=== PATIENT | female | born 1965 | race Caucasian/White ===

== ENCOUNTER 2018-12-01 23:01 | Observation (INO) | payer BC ==
--- OUTSIDE RECORDS SUMMARY | 2018-12-01 23:03 | XMS REPORT | Summary of Care ---
:1965 Author Organization [facility] Address [address] [place], [place] [id number] Encounter HQ Encntr_alias(FIN) [id number] Date(s): 01/15/17 - 01/15/[address] Discharge Disposition: Home or Self Care Attending Physician: Pete Byers MD Referring Physician: Pete Byers MD Vital Signs No data available for this section Problem List No data available for this section Allergies, Adverse Reactions, Alerts No data available for this section Medications No data available for this section Results No data available for this section Immunizations No data available for this section Procedures No data available for this section Social History No data available for this section Assessment and Plan No data available for this section
--- OUTSIDE RECORDS SUMMARY | 2018-12-01 23:03 | XMS REPORT | Continuity of Care Document ---
:1965 Author Organization Interface Problems Problem Status Onset Date Classification Date Comments Source Reported PAIN Active 01/11/2017 [facility] Medications Medication Details Route Status Patient Ordering Order Source Instructions Provider Date Allergies, Adverse Reactions, Alerts Substance Category Reaction Severity Reaction Status Date Comments Source type Reported Immunizations Immunization Date Given Site Status Last Updated Comments Source Results Order Results Value Reference Date Interpretation Comments Source Name Range Chest 2 Chest 2 CHEST TWO VIEW 01/15 - [facility] views views - DX INDICATION: Clearance for the patient to begin Humira medication for psoriasis. Read by: Justin Moore MD Dictated Date/time: 01/15/17 11:54 Electronically Signed by: Justin Moore MD 01/15/17 11:56 FINAL REPORT COMPARISON: None. FINDINGS: The lungs are clear. The pleura, cardiomediastinal silhouette and bony thorax are normal. IMPRESSION: Negative. END IMPRESSION SL: [id number] Vital Signs Vital Sign Value Date Comments Source Encounters Location Location Encounter Encounter Reason Attending ADM DC Status Source Details Type Number For Provider Date Date Visit [facility] Outpatient [id number] Pete Byers 01/15 01/16 [facility] /2016 [facility] Procedures Procedure Code Date Perfomer Comments Source
[2018-12-01] MEDS ORDERED: ONDANSETRON 4 MG/2 ML VIAL ONE (23:40)
[2018-12-02 00:06] LABS: Absolute Lymphocytes (CBC) 2.2 K/uL (0.7-4.9); Absolute Monocytes 0.5 K/uL (0.1-1.3); Absolute Neutrophil 5.9 K/uL (1.8-8.0); Basophils % 0.8 % (0-1.3); Eosinophils % 6.1 % (0-4.4); Hematocrit 40.5 % (36.0-45.0); Lymphocytes % 23.9 % (15.3-44.8); MPV 9.1 fL (7.6-11.3); Monocytes % 5.9 % (3.3-12.3); RBC Red Blood Cell Count 4.48 M/uL (3.86-4.86)
[2018-12-02 00:12] LABS: ALT/SGPT 34 U/L (12-78); AST/SGOT 24 U/L (15-37); Albumin 3.9 g/dL (3.4-5.0); Alkaline Phosphatase 66 U/L (45-117); BUN Blood Urea Nitrogen 14 mg/dL (7-18); Bicarbonate 29 mmol/L (21-32); Bilirubin Direct 0.1 mg/dL (0-0.2); Bilirubin Total 0.4 mg/dL (0.2-1.0); Glucose Level 111 mg/dL (74-106); Lipase 116 U/L (73-393); Potassium 3.4 mmol/L (3.5-5.1); Protein, Total 7.4 g/dL (6.4-8.2); Sodium Level 140 mmol/L (136-145)
[2018-12-02] MEDS ORDERED: FENTANYL CITR 100 MCG/2 ML ONE (00:50)
[2018-12-02] MEDS ORDERED: FAMOTIDINE 20 MG/2 ML VIAL IV ONE (00:51)
[2018-12-02] MEDS ORDERED: PIPER/TAZO/NS 3.375gm 3.375 GM/100 ML BAG ONE (00:51)
[2018-12-02] MEDS ORDERED: NA CHLORIDE 0.9% 1,000 ML ONE (00:51)
[2018-12-02 01:00] LABS: Protime INR 0.99
[2018-12-02 01:21] LABS: Troponin (Emerg Dept Use Only) < 0.02 ng/mL (0.0-0.045)
--- NOTE | 2018-12-02 01:59 | ER ---
Nurse's Notes [facility] Name: Nathalie Buckley Age: 53 yrs Sex: Female : 1965 Arrival Date: 12/01/2018 Time: 23:05 Bed 25 Private MD: Bridger Michaels B Diagnosis: Abdominal tenderness;Vomiting;Hypokalemia;Essential (primary) hypertension Presentation: 12/01 23:15 Presenting complaint: Patient states: she has abdominal pain/cramping radiating to the mg2 back started this 2130H. she ate chicken blue in [facility]. she vomited once on her way her to ed. Transition of care: patient was not received from another setting of care. Onset of symptoms was December 01, 2018 at 21:30. Risk Assessment: Do you want to hurt yourself or someone else? Patient reports no desire to harm self or others. Initial Sepsis Screen: Does the patient meet any 2 criteria? No. Patient's initial sepsis screen is negative. Does the patient have a suspected source of infection? No. Patient's initial sepsis screen is negative. Care prior to arrival: None. 23:15 Method Of Arrival: Ambulatory mg2 23:15 Acuity: LIYA 3 mg2 Triage Assessment: 23:22 General: Appears in no apparent distress. comfortable, Behavior is calm, cooperative. mg2 Pain: Complains of pain in abdomen Pain radiates to back Pain currently is 9 out of 10 on a pain scale. Quality of pain is described as aching, crampy, Pain began gradually, 2 hours ago. Is intermittent. EENT: No deficits noted. Neuro: Level of Consciousness is awake, alert, obeys commands, Oriented to person, place, time, situation. Cardiovascular: Capillary refill < 3 seconds Patient's skin is warm and dry. Respiratory: Airway is patent Respiratory effort is even, unlabored, Respiratory pattern is regular, symmetrical. GI: Abdomen is flat, non-distended, Reports lower abdominal pain, upper abdominal pain, vomiting. : No signs and/or symptoms were reported regarding the genitourinary system. Derm: Skin is intact, is healthy with good turgor, Skin is pink, warm \T\ dry. normal. Musculoskeletal: No signs and/or symptoms reported regarding the musculoskeletal system. 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 - Social history:: Smoking status: Patient/guardian denies using tobacco, Patient uses alcohol, 2-3 bottles 5 times a week. Patient/guardian denies using street drugs, IV drugs. - Ebola Screening: : No symptoms or risks identified at this time. Screenin:21 Abuse screen: Denies threats or abuse. Denies injuries from another. Nutritional mg2 screening: No deficits noted. Tuberculosis screening: No symptoms or risk factors identified. Fall Risk IV access (20 points). Assessment: 23:23 Reassessment: see triage assessment. mg2 12/02 01:47 Reassessment: patient sleeping on bed. mg2 02:17 Reassessment: dr carrero came and assessed the patient. advised for hospitalization. mg2 patient agreed. 02:18 GI: Bowel sounds present X 4 quads. Abd is soft X 4 quads. mg2 02:53 Reassessment: patient sent to ct scan. mg2 Vital Signs: 12/01 23:19 BP 115 / 55; Pulse 82; Resp 18; Temp 98.2; Pulse Ox 100% on R/A; Weight 63.5 kg; Height mg2 5 ft. 6 in. (167.64 cm); Pain 9/10; 12/02 00:09 BP 155 / 105; Pulse 72; Resp 19; Pulse Ox 100% on R/A; ca1 02:52 BP 142 / 78; Pulse 78; Resp 18; Pulse Ox 100% on R/A; Pain 0/10; mg2 12/01 23:19 Body Mass Index 22.60 (63.50 kg, 167.64 cm) mg2 ED Course: 12/01 23:05 Patient arrived in ED. am2 23:05 Bridger Michaels MD is Private Physician. am2 23:19 Triage completed. mg2 23:20 Inserted saline lock: 20 gauge in left antecubital area, using aseptic technique. Blood ca1 collected. 23:21 Arm band placed on. mg2 23:23 No provider procedures requiring assistance completed. mg2 03/04 00:02 Surendra Valreio MD is Attending Physician. sukh 00:03 Fantasma Costello RN is Primary Nurse. mg2 00:48 X-ray completed. Portable x-ray completed in exam room. Patient tolerated procedure kw well. 00:49 Chest Single View XRAY In Process Unspecified. EDMS 01:57 Kai Howard MD is Hospitalizing Provider. sukh 02:18 Patient has correct armband on for positive identification. mg2 02:37 Patient admitted, IV remains in place. mg2 02:[address] via wheelchair. kw1 03:04 CT completed. Patient tolerated procedure well. Patient moved back from CT. kw1 Administered Medications: 03 23:32 CANCELLED (Duplicate Order): Zofran 2 mg IVP once; over 2 minutes ca1 23:33 Drug: Zofran 4 mg Route: IVP; Site: left antecubital; ca1 03/04 00:46 Follow up: Response: No adverse reaction; Nausea is decreased mg2 00:45 Drug: fentaNYL (PF) 25 mcg Route: IVP; Site: left antecubital; mg2 01:40 Follow up: Response: No adverse reaction; Marked relief of symptoms mg2 00:45 Drug: fentaNYL (PF) 25 mcg Route: IVP; Site: left antecubital; mg2 01:40 Follow up: Response: No adverse reaction; Marked relief of symptoms mg2 00:45 Drug: Zosyn 3.375 grams Route: IVPB; Infused Over: 60 mins; Site: left antecubital; mg2 01:40 Follow up: Response: No adverse reaction; IV Status: Completed infusion mg2 00:46 Drug: NS 0.9% 1000 ml Route: IV; Rate: 1 bolus; Site: left antecubital; mg2 01:41 Follow up: Response: No adverse reaction; IV Status: Completed infusion mg2 00:46 Drug: Pepcid 20 mg Route: IVP; Site: left antecubital; mg2 01:40 Follow up: Response: No adverse reaction; Marked relief of symptoms mg2 02:17 Drug: NS 0.9% with KCl 20 mEq/L 1000 ml Route: IV; Rate: 125 ml/hr; Site: left mg2 antecubital; 02:58 Follow up: Response: No adverse reaction; IV Status: Infusion continued upon admission mg2 Outcome: 01:58 Decision to Hospitalize by Provider. sukh 02:37 Admitted to [facility] by nurse, via wheelchair, room 427, with chart, Report mg2 called to LINDSAY Atkinson 02:37 Condition: stable 02:37 Instructed on the need for admit, Demonstrated understanding of instructions. 03:04 Patient left the ED. tl1 Signatures: Dispatcher [employer] EDSurendra Ornelas MD MD cha Whitley, Kimberlee kw Lasagna, Tonya RN RN tl1 Flavia Dailey Kimberly kw1 Fantasma Costello RN RN mg2 Hilda Cruz, RN RN ca1 Corrections: (The following items were deleted from the chart) 03 23:23 23:22 General: Appears mg2 mg2
--- NOTE | 2018-12-02 02:00 | EDPHYS ---
Physician Documentation [facility] Name: Nathalie Buckley Age: 53 yrs Sex: Female : 1965 Arrival Date: 12/01/2018 Time: 23:05 Bed 25 Private MD: Bridger Michaels B ED Physician Surendra Valerio HPI: 12/02 00:31 This 53 yrs old Female presents to ER via Ambulatory with complaints of sukh Abdominal Distention, Abdominal Pain, Abdominal Cramping, Back Pain. 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 - Social history:: Smoking status: Patient/guardian denies using tobacco, Patient uses alcohol, 2-3 bottles 5 times a week. Patient/guardian denies using street drugs, IV drugs. - Ebola Screening: : No symptoms or risks identified at this time. ROS: 12/02 00:31 Constitutional: Negative for fever, chills, and weight loss, Eyes: Negative for injury, sukh pain, redness, and discharge, ENT: Negative for injury, pain, and discharge, Neck: Negative for injury, pain, and swelling, Cardiovascular: Negative for chest pain, palpitations, and edema, Respiratory: Negative for shortness of breath, cough, wheezing, and pleuritic chest pain, Back: Negative for injury and pain, : Negative for injury, bleeding, discharge, and swelling, MS/Extremity: Negative for injury and deformity, Skin: Negative for injury, rash, and discoloration, Neuro: Negative for headache, weakness, numbness, tingling, and seizure, Psych: Negative for depression, anxiety, suicide ideation, homicidal ideation, and hallucinations, Allergy/Immunology: Negative for hives, rash, and allergies, Endocrine: Negative for neck swelling, polydipsia, polyuria, polyphagia, and marked weight changes, Hematologic/Lymphatic: Negative for swollen nodes, abnormal bleeding, and unusual bruising. Abdomen/GI: Positive for abdominal pain, abdominal distension, of the epigastric area and right upper quadrant. Exam: 00:31 Constitutional: This is a well developed, well nourished patient who is awake, alert, sukh and in no acute distress. Head/Face: Normocephalic, atraumatic. Eyes: Pupils equal round and reactive to light, extra-ocular motions intact. Lids and lashes normal. Conjunctiva and sclera are non-icteric and not injected. Cornea within normal limits. Periorbital areas with no swelling, redness, or edema. ENT: Nares patent. No nasal discharge, no septal abnormalities noted. Tympanic membranes are normal and external auditory canals are clear. Oropharynx with no redness, swelling, or masses, exudates, or evidence of obstruction, uvula midline. Mucous membranes moist. Neck: Trachea midline, no thyromegaly or masses palpated, and no cervical lymphadenopathy. Supple, full range of motion without nuchal rigidity, or vertebral point tenderness. No Meningismus. Chest/axilla: Normal chest wall appearance and motion. Nontender with no deformity. No lesions are appreciated. Cardiovascular: Regular rate and rhythm with a normal S1 and S2. No gallops, murmurs, or rubs. Normal PMI, no JVD. No pulse deficits. Respiratory: Lungs have equal breath sounds bilaterally, clear to auscultation and percussion. No rales, rhonchi or wheezes noted. No increased work of breathing, no retractions or nasal flaring. Back: No spinal tenderness. No costovertebral tenderness. Full range of motion. Skin: Warm, dry with normal turgor. Normal color with no rashes, no lesions, and no evidence of cellulitis. MS/ Extremity: Pulses equal, no cyanosis. Neurovascular intact. Full, normal range of motion. Neuro: Awake and alert, GCS 15, oriented to person, place, time, and situation. Cranial nerves II-XII grossly intact. Motor strength 5/5 in all extremities. Sensory grossly intact. Cerebellar exam normal. Normal gait. Psych: Awake, alert, with orientation to person, place and time. Behavior, mood, and affect are within normal limits. 00:31 Abdomen/GI: Inspection: abdomen appears normal, Bowel sounds: normal, in the epigastric area and right upper quadrant, Palpation: mild abdominal tenderness, moderate abdominal tenderness, in the epigastric area and right upper quadrant, Liver: no appreciated palpable abnormalities, Hernia: not appreciated. Vital Signs: 12/01 23:19 BP 115 / 55; Pulse 82; Resp 18; Temp 98.2; Pulse Ox 100% on R/A; Weight 63.5 kg; Height mg2 5 ft. 6 in. (167.64 cm); Pain 9/10; 12/02 00:09 BP 155 / 105; Pulse 72; Resp 19; Pulse Ox 100% on R/A; ca1 02:52 BP 142 / 78; Pulse 78; Resp 18; Pulse Ox 100% on R/A; Pain 0/10; mg2 12/01 23:19 Body Mass Index 22.60 (63.50 kg, 167.64 cm) mg2 MDM: 00:02 Patient medically screened. [facility] 00:33 Data reviewed: vital signs, nurses notes, lab test result(s), EKG, radiologic studies, [facility] CT scan, plain films. 12/01 23:15 Order name: Basic Metabolic Panel; Complete Time: 01:52 [facility] 12/01 23:15 Order name: CBC with Diff; Complete Time: 00:28 [facility] 12/01 23:15 Order name: Creatinine for Radiology; Complete Time: 00:28 [facility] 12/01 23:15 Order name: Hepatic Function; Complete Time: 01:52 [facility] 12/01 23:15 Order name: Lipase; Complete Time: 01:52 [facility] 12/02 00:31 Order name: PT-INR; Complete Time: 01:52 sukh 12/02 00:31 Order name: Ptt, Activated; Complete Time: 01:[address] [facility] 12/02 00:44 Order name: Troponin (Emerg Dept Use Only); Complete Time: 01:52 [facility] 12/02 02:26 Order name: Urinalysis [facility] 12/02 02:26 Order name: CBC with Automated Diff [facility] 12/02 02:26 Order name: CBC with Automated Diff [facility] 12/02 02:26 Order name: Comprehensive Metabolic Panel ED[facility] 12/02 02:26 Order name: Comprehensive Metabolic Panel [facility] 12/02 00:31 Order name: Chest Single View XRAY [facility] 12/02 00:31 Order name: CT Abd/Pelvis - W/Contrast [facility] 12/02 02:02 Order name: US Abdomen Limited [facility] 12/02 02:26 Order name: NPO EDLA 03/04 02:26 Order name: Magnesium [facility] 12/02 02:26 Order name: Magnesium EDMS 12/02 02:26 Order name: Phosphorus EDMS 12/02 02:26 Order name: Phosphorus EDMS 12/01 23:15 Order name: IV Saline Lock; Complete Time: 23:27 mg2 12/01 23:15 Order name: Labs collected and sent; Complete Time: 23:27 mg2 Administered Medications: 12/01 23:32 CANCELLED (Duplicate Order): Zofran 2 mg IVP once; over 2 minutes ca1 23:33 Drug: Zofran 4 mg Route: IVP; Site: left antecubital; ca1 12/02 00:46 Follow up: Response: No adverse reaction; Nausea is decreased mg2 00:45 Drug: fentaNYL (PF) 25 mcg Route: IVP; Site: left antecubital; mg2 01:40 Follow up: Response: No adverse reaction; Marked relief of symptoms mg2 00:45 Drug: fentaNYL (PF) 25 mcg Route: IVP; Site: left antecubital; mg2 01:40 Follow up: Response: No adverse reaction; Marked relief of symptoms mg2 00:45 Drug: Zosyn 3.375 grams Route: IVPB; Infused Over: 60 mins; Site: left antecubital; mg2 01:40 Follow up: Response: No adverse reaction; IV Status: Completed infusion mg2 00:46 Drug: NS 0.9% 1000 ml Route: IV; Rate: 1 bolus; Site: left antecubital; mg2 01:41 Follow up: Response: No adverse reaction; IV Status: Completed infusion mg2 00:46 Drug: Pepcid 20 mg Route: IVP; Site: left antecubital; mg2 01:40 Follow up: Response: No adverse reaction; Marked relief of symptoms mg2 02:17 Drug: NS 0.9% with KCl 20 mEq/L 1000 ml Route: IV; Rate: 125 ml/hr; Site: left mg2 antecubital; 02:58 Follow up: Response: No adverse reaction; IV Status: Infusion continued upon admission mg2 Disposition: 12/02/18 01:58 Hospitalization ordered by Kai Howard for Observation. Preliminary diagnosis are Abdominal tenderness, Vomiting, Hypokalemia, Essential (primary) hypertension. - Bed requested for Telemetry/MedSurg (observation). - Status is Observation. tl1 - Condition is Stable. - Problem is new. - Symptoms have improved. UTI on Admission? No Signatures: Dispatcher [employer] EDLA Surendra Valerio MD MD cha Lasagna, Tonya, RN RN tl1 Racheal Bello wa Fantasma Costello RN RN mg2 Hilda Cruz RN RN ca1 Corrections: (The following items were deleted from the chart) 12/01 23:32 23:27 Zofran 2 mg IVP once; over 2 minutes ordered. ca1 ca1 12/02 00:43 00:31 TROPONIN (EMERG DEPT USE ONLY)+C.LAB.BRZ ordered. [facility] EDLA 02:18 01:58 Hospitalization Ordered by Kai Howard MD for Observation. Preliminary mt diagnosis is Abdominal tenderness; Vomiting; Hypokalemia; Essential (primary) hypertension. Bed requested for Telemetry/MedSurg (observation). Status is Observation. Condition is Stable. Problem is new. Symptoms have improved. UTI on Admission? No. [facility] 03:04 02:18 12/02/2018 01:58 Hospitalization Ordered by Kai Howard MD for Observation. tl1 Preliminary diagnosis is Abdominal tenderness; Vomiting; Hypokalemia; Essential (primary) hypertension. Bed requested for Telemetry/MedSurg (observation). Status is Observation. Condition is Stable. Problem is new. Symptoms have improved. UTI on Admission? No. mt
[2018-12-02] MEDS ORDERED: NS KCL 20MEQ 1,000 ML IV ONE (02:16)
[2018-12-02] MEDS ORDERED: ONDANSETRON 4 MG/2 ML VIAL IV PRN (02:21)
[2018-12-02] MEDS ORDERED: ACETAMINOPHEN 500 MG TAB PO PRN (02:21)
[2018-12-02] MEDS ORDERED: ALPRAZOLAM 0.25 MG TABLET PO PRN (02:21)
[2018-12-02] MEDS ORDERED: MAGNESIUM HYDROXIDE 8% 30 ML PO PRN (02:21)
[2018-12-02 03:28] VITALS: O2SAT 100
[2018-12-02] MEDS: NA CHLORIDE 0.9% 1,000 ML IV SCH ×2 (03:43→13:00)
[2018-12-02 04:16] VITALS: BMI 22.6
--- NOTE | 2018-12-02 07:55 | RAD REPORT ---
EXAM DESCRIPTION: Sarah Single View12/02/2018 12:51 am CLINICAL HISTORY: abdominal pain COMPARISON: none FINDINGS: The lungs appear clear of acute infiltrate. The heart is normal size IMPRESSION: No acute abnormalities displayed
[2018-12-02] MEDS: KCL 20 MEQ/100 mL IVPB 20 MEQ/100 ML BAG IV SCH ×2 (08:00→10:00)
--- NOTE | 2018-12-02 08:09 | RAD REPORT ---
EXAM DESCRIPTION: US - Abdomen Exam Limited - 12/02/2018 7:57 am CLINICAL HISTORY: Abdominal pain. COMPARISON: December 02 CAT scan FINDINGS: A large gallstone. Smaller gallstones are present. The gallbladder wall measures 4 millime ters. Small amount pericholecystic fluid The biliary tree is normal caliber. IMPRESSION: Cholelithiasis with thickened wall and small amount of pericholecystic fluid consistent with cholecystitis.
[2018-12-02] MEDS ORDERED: ENOXAPARIN 40 MG/0.4 ML SQ SCH (09:00)
[2018-12-02] MEDS ORDERED: ALBUTEROL 2.5 MG/3 ML NEB SOL NEB PRN (09:30)
[2018-12-02] MEDS ORDERED: METRONIDAZOLE 500mg IVPB 500 MG/100 ML BAG IV SCH (10:00)
--- NOTE | 2018-12-02 10:49 | P.HP ---
Certification for Inpatient Patient admitted to: Inpatient With expected LOS: >2 Midnights Patient will require the following post-hospital care: None Practitioner: I am a practitioner with admitting privileges, knowledge of patient current condition, hospital course, and medical plan of care. Services: Services provided to patient in accordance with Admission requirements found in Title 42 Section 412.3 of the Code of Federal Regulations Patient History Date of Service: 12/02/18 Reason for admission: Abdominal pain/acute cholecystitis History of Present Illness: Patient is a 53-year-old female came to the hospital with abdominal discomfort. Pain was mainly in the right upper quadrant. Patient had an episode of nausea and vomiting. Patient workup in the ER revealed acute cholecystitis with cholelithiasis. Patient will be admitted to the hospital with General surgery consultation. Will also get an abdominal ultrasound start on IV antibiotics. Pain control as well. Allergies No Known Allergies Allergy (Verified 12/02/18 04:34) Home Medications: Albuterol Sulfate [Proair Hfa] 8.5 gm IH BIDP PRN 12/02/18 Guselkumab [Tremfya] 100 mg SQ SEECOM 12/02/18 Losartan Potassium [Cozaar] 50 mg PO DAILY 12/02/18 - Past Medical/Surgical History Has patient received pneumonia vaccine in the past: No Diabetic: No -: hypertension -: asthma -: c section - Family History Father Medical History: Hypertension Mother Medical History: Hypertension - Social History Smoking Status: Never smoker Alcohol use: Yes Caffeine use: Yes Place of Residence: Home Review of Systems 10-point ROS is otherwise unremarkable Physical Examination - Vital Signs Temperature: 97.6 F Blood Pressure: 128/88 Pulse: 74 Respirations: 16 Pulse Ox (%): 98 - Physical Exam General: Alert, In no apparent distress, Oriented x3 HEENT: Atraumatic, PERRLA, Mucous membr. moist/pink, EOMI, Sclerae nonicteric Neck: Supple, 2+ carotid pulse no bruit, No LAD, Without JVD or thyroid abnormality Respiratory: Clear to auscultation bilaterally, Normal air movement Cardiovascular: Regular rate/rhythm, Normal S1 S2, No murmurs Gastrointestinal: Normal bowel sounds, Soft and benign, Non-distended, Tenderness, Rebound Musculoskeletal: No clubbing, No swelling, No tenderness Integumentary: No rashes Neurological: Normal gait, Normal speech, Normal strength at 5/5 x4 extr, Normal tone, Sensation intact, Cranial nerves 3-12 intact, Normal affect Lymphatics: No axilla or inguinal lymphadenopathy - Studies Laboratory Data (last 24 hrs) 12/02/18 00:00: PT 11.7, INR 0.99, APTT 31.1 12/01/18 23:20: Creatinine 0.84 12/01/18 23:20: WBC 9.3, Hgb 13.6, Hct 40.5, Plt Count 280 12/01/18 23:20: Sodium 140, Potassium 3.4 L, BUN 14, Creatinine 0.85, Glucose 111 H, Total Bilirubin 0.4, AST 24, ALT 34, Alkaline Phosphatase 66, Lipase 116 Assessment & Plan - Problems (Diagnosis) (1) Acute cholecystitis due to biliary calculus Current Visit: Yes Status: Acute - Plan 1. Continue with IV hydration 2. Continue with IV antibiotics 3. Continue with pain control 4. NPO 5. General surgery consultation; abdominal ultrasound pending 6. Serial H&H, and we will monitor CBC, BMP, LFTs and lipase along with electrolytes. 7. GI and DVT prophylaxis Discharge Plan: Home Plan to discharge in: Greater than 2 days - Advance Directives Does patient have a Living Will: No Does patient have a Durable POA for Healthcare: No - Code Status/Comfort Care Code Status Assessed: Yes Code Status: Full Code Critical Care: No Time Spent Managing PTS Care (In Minutes): 50
[2018-12-02] MEDS ORDERED: CIPROFLOXACIN 400mg IV 400 MG/200 ML BAG IV SCH (11:00)
--- NOTE | 2018-12-02 11:05 | P.DS ---
Admission Date: 12/02/18 Discharge Date: 12/02/18 Primary Care Provider: Dr. Michaels Disposition: ROUTINE DISCHARGE Discharge Condition: GOOD Reason for Admission: Abdominal pain/acute cholecystitis Consultations: Surgery-Dr. Tejeda Procedures: ABUS: COMPARISON: December 02 CAT scan FINDINGS: A large gallstone. Smaller gallstones are present. The gallbladder wall measures 4 millimeters. Small amount pericholecystic fluid The biliary tree is normal caliber. IMPRESSION: Cholelithiasis with thickened wall and small amount of pericholecystic fluid consistent with cholecystitis. Medical Problem List: Right upper quadrant abdominal pain, nausea and vomiting secondary to acute cholecystitis and cholelithiasis Hypertension Asthma Psoriasis Brief History of Present Illness: 53-year-old female presented emergency room with right upper quadrant abdominal pain, nausea and vomiting. Patient evaluated in the emergency room. Patient found to have cholecystitis with cholelithiasis. Patient was admitted for further evaluation. Hospital Course: Patient presented with right upper quadrant abdominal pain, nausea and vomiting secondary to acute cholecystitis and cholelithiasis. Pro calcitonin negative. White count within normal range. Patient was admitted for treatment. Patient seen and evaluated by surgery. No surgical intervention was required. Patient did well in her stay. At discharge she will continue with Flagyl 500 mg 1 pill 3 times a day and Cipro 500 mg 1 pill twice daily for 7 days. Recommend to follow up with surgery within 1 week. Arrangements for outpatient cholecystectomy will be arranged as the patient will follow up with surgery. Patient with hypertension. Patient will continue with losartan 50 mg 1 pill daily. Recommend to maintain blood pressures less 150/80. Further adjustment can be done by her PCP. Patient with asthma. Patient will continue with her inhalers. Further adjustment can be done by her PCP. Patient with psoriasis. Patient will continue with her medication. Vital Signs/Physical Exam: Temp Pulse Resp BP Pulse Ox 97.6 F 74 16 128/88 98 12/02/18 10:49 12/02/18 10:49 12/02/18 10:49 12/02/18 10:49 12/02/18 10:49 General: Alert, In no apparent distress, Oriented x3, Cooperative HEENT: Atraumatic Neck: Supple Respiratory: Clear to auscultation bilaterally, Normal air movement Cardiovascular: Normal pulses, Regular rate/rhythm Gastrointestinal: Normal bowel sounds, Soft and benign, Non-distended, No ascites, No tenderness, No masses, No rebound, No guarding Musculoskeletal: No erythema, No tenderness, No warmth Integumentary: No tenderness/swelling, No erythema, No warmth, No cyanosis Neurological: Normal speech, Normal strength at 5/5 x4 extr, Normal tone, Normal affect Laboratory Data at Discharge: WBC 9.3 K/uL (4.3-10.9) 12/01/18 23:20 Hgb 13.6 g/dL (12.0-15.0) 12/01/18 23:20 Hct 40.5 % (36.0-45.0) 12/01/18 23:20 Plt Count 280 K/uL (152-406) 12/01/18 23:20 PT 11.7 SECONDS (9.5-12.5) 12/02/18 00:00 INR 0.99 12/02/18 00:00 APTT 31.1 SECONDS (24.3-36.9) 12/02/18 00:00 Sodium 140 mmol/L (136-145) 12/01/18 23:20 Potassium 3.9 mmol/L (3.5-5.1) 12/02/18 08:08 BUN 14 mg/dL (7-18) 12/01/18 23:20 Creatinine 0.85 mg/dL (0.55-1.3) 12/01/18 23:20 Glucose 111 mg/dL (74-106) H 12/01/18 23:20 Total Bilirubin 0.4 mg/dL (0.2-1.0) 12/01/18 23:20 AST 24 U/L (15-37) 12/01/18 23:20 ALT 34 U/L (12-78) 12/01/18 23:20 Alkaline Phosphatase 66 U/L (45-117) 12/01/18 23:20 Lipase 116 U/L (73-393) 12/01/18 23:20 Home Medications: Albuterol Sulfate [Proair Hfa] 8.5 gm IH BIDP PRN 12/02/18 Ciprofloxacin HCl [Cipro 500 MG Tablet] 500 mg PO BID #14 tab 12/02/18 Guselkumab [Tremfya] 100 mg SQ SEECOM 12/02/18 Losartan Potassium [Cozaar*] 50 mg PO DAILY 12/02/18 metroNIDAZOLE [Flagyl] 500 mg PO Q8H #21 tablet 12/02/18 New Medications: Ciprofloxacin HCl [Cipro 500 MG Tablet] 500 mg PO BID #14 tab metroNIDAZOLE [Flagyl] 500 mg PO Q8H #21 tablet Patient Discharge Instructions: 1. Patient will follow up with surgery within 1 week. 2. Patient presented with right upper quadrant abdominal pain, nausea and vomiting secondary to acute cholecystitis and cholelithiasis. Pro calcitonin negative. White count within normal range. Patient was admitted for treatment. Patient seen and evaluated by surgery. No surgical intervention was required. Patient did well in her stay. At discharge she will continue with Flagyl 500 mg 1 pill 3 times a day and Cipro 500 mg 1 pill twice daily for 7 days. Recommend to follow up with surgery within 1 week. Arrangements for outpatient cholecystectomy will be arranged as the patient will follow up with surgery. 3. Patient with hypertension. Patient will continue with losartan 50 mg 1 pill daily. Recommend to maintain blood pressures less 150/80. Further adjustment can be done by her PCP. 4. Patient with asthma. Patient will continue with her inhalers. Further adjustment can be done by her PCP. 5. Patient with psoriasis. Patient will continue with her medication. Diet: GI soft diet Activity: Ad jadon Time spent managing pt's care (in minutes): 55
--- NOTE | 2018-12-02 13:05 | RAD REPORT ---
EXAM DESCRIPTION: CT - Abdomen Pelvis W Contrast - 12/02/2018 4:34 am COMPARISON: None CLINICAL HISTORY: Abdominal pain TECHNIQUE: Multiple helical axial images were obtained through the abdomen and pelvis using intraven ous contrast. Coronal and sagittal reformatted images were obtained. All CT scans at this facility use dose modulation, iterative reconstruction, and/or weight-based dosi ng when appropriate to reduce radiation dose to as low as reasonably achievable. FINDINGS: Lung bases: A small hiatal hernia is present. Small calcified granuloma in the left lower lobe is present. Liver: Homogenous attenuation is noted. Gallbladder/biliary: Gallstones within the gallbladder are present. Gallbladder wall appears mildly t hickened. No evidence of biliary ductal dilatation. Pancreas: Unremarkable. No evidence of ductal enlargement. Spleen: Appears unremarkable. No splenomegaly. Adrenals: Unremarkable. Kidneys and ureters: No evidence of hydronephrosis. Normal enhancement. Bladder: Unremarkable. Pelvic organs: A 3 cm mildly heterogeneous lesion involving the uterine fundus is present suggestive of a fibroid. Small nabothian cysts are present. Bowel: Colonic diverticula are present. No evidence of bowel obstruction. No bowel wall thickening. Appendix appears unremarkable. Vasculature: Minimal aortic atherosclerosis is present. Peritoneum: No free air. No significant free fluid. Lymph nodes: Unremarkable. Soft tissues: Unremarkable. Bones: Degenerative changes of the lumbar spine noted. IMPRESSION: 1. Cholelithiasis with mildly thickened appearance of the gallbladder wall, correlate cl inically for acute cholecystitis. Ultrasound can be obtained for follow-up as appropriate. 2. Small uterine fibroid. 3. Colonic diverticulosis. 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 The interpreting radiologist is f ully responsible for the content of the report.
[2018-12-02 13:42] LABS: Urine Appearance CLEAR; Urine Bilirubin NEGATIVE (NEG); Urine Blood NEGATIVE (NEG); Urine Color YELLOW; Urine Glucose NEGATIVE (NEG); Urine Protein NEGATIVE (NEG); Urine Specific Gravity 1.015 (1.005-1.030)
[2018-12-02 13:43] LABS: Urine Microscopic Reflex NO UMIC
--- NOTE | 2018-12-02 14:29 | CON ---
Date of Consultation: 12/02/2018 Brief History Of Present Illness: The patient is a 53-year-old female, who came to the [facility] with abdominal discomfort beginning yesterday, it was mainly in the epigastric area in a band-l cedric distribution, but localized to the right upper quadrant and epigastric region. She had an episod e of nausea and vomiting. She had somewhat similar episodes before in the past. She had an EGD and was told she had a hiatal hernia and gastritis before in the past, was placed on high dose acid suppr ession with 40 mg p.o. b.i.d. by her description by Dr. Voss. She did get symptomatic improvement with that, but these episodes felt somewhat similar, although they localized to the right upper quadr ant, which was a somewhat atypical presentation for her and as such, she came to the emergency room. Past Medical History: Significant for hypertension, asthma, . Past Surgical History: She has had D and C, , abdominoplasty. Allergies: ONLY SEASONAL ALLERGIES. NO KNOWN DRUG ALLERGIES. Medications: At home include, ProAir, Tremfya, and Cozaar. Family History: Father had hypertension and mother had hypertension. Social History: Smoking, she denies smoking. She drinks 2 bottles of wine per week. Denies any rec reational drug use. Review of Systems: A 10-point review of systems other than HPI, denies. Physical Examination: Vital Signs: At the time of my examination, her BMI is 22.6. Her blood pressure 128/88, pulse 74, r espiratory rate 16, temperature 97.6. General: She is awake, alert, and oriented. Psychiatric: She is appropriate and conversive. HEENT: She is normocephalic. Sclerae anicteric. Mucous is moist. Oropharynx is clear. Neck: Supple. No JVD. Chest: Normal expansion and excursion. Cardiovascular: Regular rate and rhythm. Pulmonary: Clear to auscultation bilaterally. Abdomen: Soft, nontender, nondistended. No rebound. No guarding. No focal peritonitis. Negative Randolph sign. She has well-healed surgical scars from her abdominoplasty. Extremities: No clubbing, cyanosis, or edema. Skin: Warm and dry. Laboratory Data: Reveals white blood cell count of 9.3, hemoglobin is 13.6, hematocrit of 40.5, plat elet count is 280. Her PT was 11.7, INR 0.9, PTT is 31.1. Sodium 140, potassium 3.9, chloride 104, carbon dioxide 29, BUN 14, creatinine 0.8, glucose is 111, calcium 8.6, total bilirubin 0.4, direct c omponent 0.1, AST 24, ALT 34, alkaline phosphatase is 66. Troponin was 0.02. Lipase was 116. Proca lcitonin less than 0.05. She had a CT scan performed of the abdomen and pelvis as well as an abdomin al ultrasound. The abdominal ultrasound was officially read as cholelithiasis with thickened wall an d small amount of pericholecystic fluid consistent with cholecystitis. The gallbladder wall measures 4 mm. Small amount of pericholecystic fluid and large gallstone. Biliary tree is normal in caliber . Her CT scan was officially read by the [facility] radiologist as colonic diverticula are present. Appendix appears unremarkable. A 3 cm heterogeneous lesion involving the uterine fundus suggestive o f fibroids. Small nabothian cysts are present. Gallbladder has gallstones within the gallbladder ar e present. Gallbladder feels mildly thickened. No evidence of biliary tree dilatation. Assessment And Plan: This is a 53-year-old female who comes in with signs and symptoms of acute calc ulous cholecystitis. 1.IV fluid hydration. 2.Antibiotic coverage. 3.I have explained risks, benefits, and alternatives of laparoscopic, possible open cholecystectomy including but not limited to bleeding, infection, damage to the surrounding tissues, injury to bile d ucts and intestines. The patient stated that she would like to schedule this as an outpatient as she is currently completely asymptomatic. She would like to leave as she states she has plans for sprin g break and would like to schedule her surgery as an outpatient following that. I have explained the dietary plan, risks, benefits, and alternatives of the above stated plan and she will be discharged if able to tolerate p.o. diet with instructions to follow up as soon as possible to schedule for elec tive cholecystectomy. I have instructed her to return to the ER with any resumption of symptoms and that the risks of the cholecystitis attack including the infectious nature which she has and the need to come to the ER immediately upon any return of symptoms or new symptoms. She displayed understand ing of above stated plan and agree to proceed as indicated. TK/SHAMAR Voice ID: [id number] Report ID: [id number]
[2018-12-02 16:31] VITALS: BP 135/89; TEMP 98.9
[2018-12-02] MEDS ORDERED: DULERA 100/5 (MOMETASONE/FORMOTEROL) INHALER IH SCH (21:00)
[2018-12-03] MEDS ORDERED: PANTOPRAZOLE 40MG TABLET PO SCH (06:30)
[2018-12-03] MEDS ORDERED: LOSARTAN POTASSIUM 50 MG TABLET PO SCH (09:00)
== END 2018-12-02 16:48 | disposition home or self-care (01) ==
LOC: ER 23:01 → ERHOLD 12-02 02:34 → 4TH 12-02 02:44
PROVIDERS: ADMIT Hospitalist; ATTEND Hospitalist
DX: K80.00 Calculus of gallbladder with acute cholecystitis without obstruction (principal); I10 Essential (primary) hypertension; J45.909 Unspecified asthma, uncomplicated; L40.9 Psoriasis, unspecified
CPT/HCPCS: 36415; 71045; 74177; 76705; 80048; 80076; 81003; 83690; 84132; 84145; 84484; 85025; 85610; 85730; 96361; 96365; 96375; 99285; G0378; J0744; J1650; J2405; J2543; J3010; J7030; J7606; Q9967